=== PATIENT | male | born 1945 | race Caucasian/White ===

== ENCOUNTER 2018-01-10 10:22 | Emergency (ER) | payer MEDICARE, SELFPAY ==
[2018-01-10 10:23] VITALS: BP 150/98; PULSE 76; RESP 18; TEMP 36.6; O2SAT 98; BMI 28.0
--- NOTE | 2018-01-10 10:35 | RAD_ITS ---
STUDY: X-RAY CHEST REASON FOR EXAM: Male, 72 years old. Chest pain. TECHNIQUE: Single AP portable view of the chest. COMPARISON: None. FINDINGS: EKG electrodes are seen. The lungs are clear and expanded. There is no demonstrated pleural abnormality. Normal size heart. Normal mediastinum and dariana. Normal visualized pulmonary arteries. There is atherosclerotic calcification of the aortic arch with tortuosity. There are diffuse degenerative changes of the visualized thoracic spine. Normal visualized ribs, clavicles, and shoulders. There is no demonstrated abnormality of the visualized soft tissue structures of the upper abdomen. RAD/Chest 1 View (Portable) IMPRESSION: No acute abnormality is seen. Electronically Signed: Jaiden Sánchez MD at 11:08 EDT Tel [phone], Service support ,
--- NOTE | 2018-01-10 10:35 | EKG12_ITS ---
Test Reason : CHEST PRESSURE Blood Pressure : / mmHG Vent. Rate : 071 BPM Atrial Rate : 071 BPM P-R Int : 158 ms QRS Dur : 082 ms QT Int : 404 ms P-R-T Axes : 018 020 024 degrees QTc Int : 439 ms Normal sinus rhythm Normal ECG Confirmed by ARRON DE DIOS, NORBERT ([id number]), assignment editor AMBER HOFFMANN ([id number] on 01/12/2018 11:33:51 AM Referred By: LUCY Confirmed By:NORBERT HELLER MD
[2018-01-10 10:40] VITALS: O2SAT 96
--- NOTE | 2018-01-10 10:55 | NURSING ---
NO LW OR POA
[2018-01-10 10:56] LABS: Absolute Lymphocyte Count 2.55 X10^3/ul (0.83-4.51); Absolute Neutrophil Count 3.7 X10^3/uL (2.0-7.7); Basophil# 0.07 X10^3/uL; Basophil% 0.9 % (0-1); Eosinophil# 0.51 X10^3/uL; Eosinophils% 6.5 % (0-5); Hemoglobin 16.3 g/dl (13.0-16.5); Lymphocyte # 2.55 X10^3/ul (4.0); Lymphocyte % 32.7 % (19-41); Mean Corp Hgb Conc 33.3 g/gl (32-36); Mean Corpuscular Hgb 28.6 pg (27.0-32.0); Mean Corpuscular Volume 86.1 fL (80-94); Mean Platelet Vol. 9.7 fl (6.2-12.0); Monocyte# 0.87 X10^3/uL; Monocyte% 11.2 % (0-10); Neutrophil # 3.73 X10^3/uL (2.7-7.7); Neutrophil % 47.9 % (47-70); POSITIVE COUNT NO; POSITIVE DIFFERENTIAL NO; POSITIVE MORPHOLOGY NO; Platelet Count 271 K/mm3 (150-450); RBC Distribution Width CV 14.2 % (11.6-14.6); RBC Distribution Width SD 45.1 fl (35.1-43.9); Red Blood Count 5.69 M/mm3 (4.6-6.2); White Blood Count 7.8 K/mm3 (4.4-11.0)
[2018-01-10 11:13] LABS: Anion Gap 6 (5-15); BUN 15 mg/dL (7-18); BUN/Creat Ratio 18.7 RATIO (10-20); Calcium,Total 9.3 mg/dL (8.5-10.1); Chloride 106 mmol/L (98-107); EST Glomerular Filtration Rate 101 mL/min (>60); Est Glom Filt Rate - Afr Amer 122 mL/min (>60); Estimated Creatinine Clearance 83.47 ml/min; Glucose 98 mg/dL (74-106); Potassium 4.2 mmol/L (3.5-5.1); Sodium Level 139 mmol/L (136-145)
--- NOTE | 2018-01-10 11:46 | ED.DCSUM_ITS ---
- ER Visit Summary Date of Service: 01/10/18 Chief Complaint: Chest pain, headache History of Present Illness: The patient is a 72 M who has been having headaches off and on for the past couple of months. At that time he was taken off of his blood pressure medications, amlodipine and a losartan type medication. He states ever since then he has had headaches. He has been having some intermittent tightness in his chest as well. He has been noticing his blood pressure is been going back up. He was taken off of the medications because of low blood pressure but he thinks it was just one erroneous reading and they overreacted. Physical Examination: Vital signs reviewed. HEENT exam unremarkable. Heart is regular rate and rhythm without murmurs. Lungs are clear to auscultation. Abdomen is soft and nontender. Extremities reveal no edema. Skin exam normal. Neurologic exam normal. Test Results: EKG, labs and chest x-ray are normal Emergency Department Course and Treatment: Patient's symptoms improved. His blood pressure is slightly elevated in the 150s over 90s. I will start him back on the 5 mg of amlodipine and he will follow-up with his PCP Treatment Plan: [] Disposition: Discharge Impression: Chest pain, hypertension This note was generated with [employer] dictation software. It may contain incorrect words, spelling, and punctuation that were not noted in review of the chart prior to signing ED Disposition - Plan for ED Patient: Chief Complaint: Chest Pain Referrals: Care Physician,No Primary [Primary Care Provider] -
--- NOTE | 2018-01-10 11:46 | ED.DEP ---
ED Disposition - Plan for ED Patient: Disposition: Home or Assisted Living Chief Complaint: Chest Pain Instructions: ED Chest Pain NonCardiac Prescriptions: Amlodipine [Norvasc] 5 mg PO DAILY #30 tab Referrals: Care Physician,No Primary [Primary Care Provider] -
[2018-01-10 11:55] VITALS: BP 163/97; PULSE 71; RESP 16; O2SAT 96
== END 2018-01-10 11:55 | disposition home or self-care (01) ==
PROVIDERS: Emergency Provider Emergency Medicine
DX: R07.9 Chest pain, unspecified (principal); I10 Essential (primary) hypertension
CPT/HCPCS: 71045; 80048; 84484; 85025; 93005; 99284

== ENCOUNTER → 2019-01-15 13:27 | Outpatient (CLI) | payer MEDICARE, SELFPAY ==
[2019-01-15 13:21] VITALS: BMI 28.0
--- NOTE | 2019-01-15 13:31 | RAD_ITS ---
STUDY: X-RAY - THORACIC SPINE REASON FOR EXAM: Male, 73 years old. Pain. TECHNIQUE: 3 view(s) of the thoracic spine were obtained. COMPARISON: None. FINDINGS: Normal kyphosis of the thoracic spine. There is no substantial scoliosis. There is multilevel endplate spondylosis of the thoracic vertebrae. There is multilevel disc space narrowing of the thoracic spine. The soft tissue structures are unremarkable. RAD/Thoracic Spine 3 Views IMPRESSION: Multilevel disc space narrowing and spondylosis. Electronically Signed: Jaiden Sánchez, at 14:34 EDT , Service support ,
--- NOTE | 2019-01-15 13:31 | RAD_ITS ---
STUDY: X-RAY - LUMBAR SPINE REASON FOR EXAM: Male, 73 years old. Pain. TECHNIQUE: 5 view(s) of the lumbar spine were obtained including oblique views. COMPARISON: None FINDINGS: Normal lumbar lordosis. There is no substantial scoliosis. There is a normal alignment of the vertebrae. There is endplate spondylosis of the lumbar vertebrae. There is multi-level degenerative disc disease with multi-level disc space narrowing. The soft tissue structures are unremarkable. RAD/L/S Spine Min 4 Views IMPRESSION: Degenerative changes of the spine, as detailed above. Electronically Signed: Jaiden Sánchez, at 14:33 EDT , Service support ,
== END ==
PROVIDERS: Referring Provider Physician Assistant Surgical; Visit Provider Physician Assistant Surgical
DX: S29.012A Strain of muscle and tendon of back wall of thorax, initial encounter (principal)
CPT/HCPCS: 72072; 72110